=== PATIENT | male | born 1965 | race Caucasian/White ===

== ENCOUNTER → 2020-08-11 | Outpatient (CLI) | payer OTHER ==
[~2020-08-11] MED LIST: AMPDEX10CR PO; ATOR20 PO; LAMO100 PO; Tenex1 MG
[2020-08-12 19:07] LABS: FREE TESTOSTERONE(DIRECT) 10.3 pg/mL (7.2-24.0); TESTOSTERONE, SERUM 571 ng/dL (264-916)
[2020-08-14 20:09] LABS: IMMUNOGLOBULIN A, QN, SERUM 188 mg/dL (90-386); T-TRANSGLUTAMINASE (TTG) IGA 3 U/mL (0-3); T-TRANSGLUTAMINASE (TTG) IGG 6 U/mL (0-5)
== END | disposition home or self-care (01) ==
LOC: PLD 13:21 → LAB SHORT 13:21
PROVIDERS: Physician Assistant
DX: K58.9 Irritable bowel syndrome, unspecified (principal); R68.82 Decreased libido
CPT/HCPCS: 82784; 83516; 84402; 84403

== ENCOUNTER 2020-10-15 08:18 | Day surgery (SDC) | payer OTHER ==
[~2020-10-15] VITALS: Ht 170.2 cm; Wt 103.8 kg
[2020-10-15] MEDS ORDERED: Tenex1 MG (09:09)
[2020-10-15] MEDS ORDERED: AMPDEX10CR PO (09:10)
[2020-10-15] MEDS ORDERED: LAMO100 PO (09:10)
[2020-10-15] MEDS ORDERED: ATOR20 PO (09:11)
--- NOTE | 2020-10-15 10:57 | NUR ---
10/15/20 1057 LARISA LOPEZ PT REPORTS HE HAS "A REALLY SORE THROAT". PT DENIES PAIN ELSEWHERE. OFFERED PT PAIN MEDICATION TO SEE IF THIS WILL HELP. HE PREFERS TO TRY ICE CHIPS ONLY AT THIS TIME. TOLERATING ICE CHIPS AND SIPS OF WATER. VSS ON ROOM AIR. NO BLOOD FROM NOSTRILS NOTED. DENIES NAUSEA. WILL CTM
== END 2020-10-15 11:49 | disposition home or self-care (01) ==
LOC: ORSCSDS 08:18
PROVIDERS: Otolaryngology
PROC: 09TL7ZZ Resection of Nasal Turbinate, Via Natural or Artificial Opening (ICD-10-PCS; principal; 2020-10-15 09:30)
DX: J34.3 Hypertrophy of nasal turbinates (principal); J34.89 Other specified disorders of nose and nasal sinuses; G47.33 Obstructive sleep apnea (adult) (pediatric); I10 Essential (primary) hypertension; F41.9 Anxiety disorder, unspecified; F90.9 Attention-deficit hyperactivity disorder, unspecified type; E78.00 Pure hypercholesterolemia, unspecified; E66.9 Obesity, unspecified; Z68.35 Body mass index [BMI] 35.0-35.9, adult; Z79.899 Other long term (current) drug therapy
CPT/HCPCS: A9270; J0171; J1100; J2250; J2704; J3010; J7120

== ENCOUNTER 2024-07-23 05:56 | Day surgery (SDC) | payer OTHER ==
[~2024-07-23] VITALS: Ht 167.6 cm; Wt 115.6 kg
[~2024-07-23 05:56] MED LIST changes: -AMPDEX10CR PO; +AMPDEX15CR PO; +LOSA50 PO; +TADALAFIL2.5 MG PO
[2024-07-23] MEDS ORDERED: Lactated Ringer's 1,000 ML IV SCH (06:25)
[2024-07-23 06:45] VITALS: BP 149/92
--- NOTE | 2024-07-23 06:54 | NUR ---
History, Chart, Medications and Allergies reviewed before start of procedure. Pre-Op teaching done. Pt verbalizes understanding. Patient states colon prep results LIGHT YELLOW. PT SPOUSE AT BS.
[2024-07-23] MEDS ORDERED: propofoL 60 ML IV ONE (07:15)
--- NOTE | 2024-07-23 07:43 | NUR ---
07/23/24 0742 Anastasiya Doyle 0734- MONITOR INTACT WITH CONTINUOUS PULSE OXIMETRY, CONTINUOUS END TITAL CO2, AND INTERMITTENT BLOOD PRESSURE.
[2024-07-23 08:11] VITALS: BP 125/89
[2024-07-23 08:15] VITALS: BP 126/87
[2024-07-23 08:28] VITALS: BP 135/86
--- NOTE | 2024-07-23 08:42 | NUR ---
Patient up to Ambulate independently. Gait steady. Discharge instructions reviewed with patient. Patient verbalizes understanding. Copy given to patient to take home, [facility]. Patient States Post-Procedure ride home has been arranged. Discharged via wheelchair to private car for ride home. PT TOLERATING PO. REPORTS READY TO GO HOME. PER DR LAINEZ KEEP/5 YEARS
== END 2024-07-23 08:42 | disposition home or self-care (01) ==
LOC: ORSCMMR 05:56 → ORD 07:30 → ORSCMMR 08:42
PROVIDERS: Internal Medicine Gastroenterology
PROC: 0DBM8ZX Excision of Descending Colon, Via Natural or Artificial Opening Endoscopic, Diagnostic (ICD-10-PCS; principal; 2024-07-23 07:30)
DX: Z12.11 Encounter for screening for malignant neoplasm of colon (principal); K63.5 Polyp of colon; I10 Essential (primary) hypertension; E78.00 Pure hypercholesterolemia, unspecified; F32.A Depression, unspecified; G47.33 Obstructive sleep apnea (adult) (pediatric); E66.01 Morbid (severe) obesity due to excess calories; Z68.41 Body mass index [BMI] 40.0-44.9, adult; Z79.899 Other long term (current) drug therapy
CPT/HCPCS: 88305; J2704; J7120